=== PATIENT | female | born 1940 | race Caucasian/White ===

== ENCOUNTER 2017-09-29 10:15 | Inpatient (IN) | payer MEDICARE, MEDICAID ==
--- NOTE | 2017-09-29 11:35 | ER Document Report ---
ED Medical Screen (RME) - General Chief Complaint: Shortness Of Breath Stated Complaint: BREATHING PROBLEMS Time Seen by Provider: 09/29/17 11:22 Mode of Arrival: Ambulatory Information source: Patient Notes: 77-year-old female presents with complaints of shortness of breath has been worsening over the past few weeks to months ago I have greeted and performed a rapid initial assessment of this patient. A comprehensive ED assessment and evaluation of the patient, analysis of test results and completion of the medical decision making process will be conducted by additional ED providers. PHYSICAL EXAMINATION: GENERAL: Well-appearing, well-nourished and in no acute distress. HEAD: Atraumatic, normocephalic. EYES: Pupils equal round extraocular movements intact, conjunctiva are normal. ENT: Nares patent NECK: Normal range of motion LUNGS: No respiratory distress Musculoskeletal: Normal range of motion NEUROLOGICAL: Normal speech, normal gait. PSYCH: Normal mood, normal affect. SKIN: Warm, Dry, normal turgor, no rashes or lesions noted. TRAVEL OUTSIDE OF THE [place] IN LAST 30 DAYS: No - Related Data Allergies/Adverse Reactions: aspirin [Aspirin] Allergy (Mild, Verified 06/15/11 09:26) swelling below eyes Past Medical History - Social History Chew tobacco use (# tins/day): No Drug Abuse: None - Past Medical History Cardiac Medical History: Reports: Hx Hypertension - LISINOPRIL,HCTZ Denies: Hx Heart Attack Pulmonary Medical History: Denies: Hx Asthma Neurological Medical History: Denies: Hx Cerebrovascular Accident, Hx Seizures Renal/ Medical History: Denies: Hx Peritoneal Dialysis GI Medical History: Denies: Hx Hepatitis, Hx Hiatal Hernia, Hx Ulcer Infectious Medical History: Denies: Hx Hepatitis Past Surgical History: Denies: Hx Hysterectomy, Hx Mastectomy, Hx Open Heart Surgery, Hx Pacemaker Physical Exam - Vital signs Vitals: Temp Pulse BP Pulse Ox 98.0 F 104 H 152/99 H 90 L 09/29/17 11:15 09/29/17 11:15 09/29/17 11:15 09/29/17 11:15 Course - Vital Signs Vital signs: Temp Pulse Resp BP Pulse Ox 98.0 F 104 H 22 H 152/99 H 95 09/29/17 11:15 09/29/17 11:15 09/29/17 11:25 09/29/17 11:15 09/29/17 11:25 Doctor's Discharge - Discharge Referrals: TORY MARR PA [Primary Care Provider] - Follow up as needed
[2017-09-29 12:30] LABS: ABSOLUTE EOSINOPHILS # (AUTO) 0.2 10^3/uL (0.0-0.6); ABSOLUTE LYMPHOCYTES (AUTO) 1.8 10^3/uL (0.5-4.7); ABSOLUTE MONOCYTES (AUTO) 0.5 10^3/uL (0.1-1.4); ABSOLUTE NEUT (AUTO) 3.4 10^3/uL (1.7-8.2); BASOPHILS % (AUTO) 0.8 % (0-2); EOSINOPHILS % (AUTO) 3.1 % (0-6); LYMPHOCYTES % (AUTO) 30.3 % (13-45); MEAN CORPUSCULAR HEMOGLOBIN 26.1 pg (27.0-33.4); MEAN CORPUSCULAR HGB CONC 32.6 g/dL (32.0-36.0); MEAN CORPUSCULAR VOLUME 80 fl (80-97); MONOCYTES % (AUTO) 7.8 % (3-13); PLATELET COUNT 213 10^3/uL (150-450); RED BLOOD COUNT 4.98 10^6/uL (3.72-5.28); RED CELL DISTRIBUTION WIDTH 15.7 % (11.5-14.0); TOTAL CELLS COUNTED % (AUTO) 100 %; WHITE BLOOD COUNT 5.8 10^3/uL (4.0-10.5)
--- NOTE | 2017-09-29 12:42 | RADIOLOGY REPORT (SQ) ---
EXAM DESCRIPTION: CT CHEST WITHOUT COMPLETED DATE/TIME: 09/29/2017 12:26 pm REASON FOR STUDY: sob COMPARISON: None. TECHNIQUE: CT scan performed of the chest without intravenous contrast. Images reviewed with lung, soft tissue and bone windows. Reconstructed coronal and sagittal MPR images reviewed. All images st ored on PACS. All CT scanners at this facility use dose modulation, iterative reconstruction, and/or weight based d osing when appropriate to reduce radiation dose to as low as reasonably achievable (ALARA). [facility]: Dose Right [facility]: CareDose [facility]: Dose Right [facility]: Teradose 4D [facility]: [facility] RADIATION DOSE: CT Rad equipment meets quality standard of care and radiation dose reduction techniq ues were employed. CTDIvol: 6.7 mGy. DLP: 250 mGy-cm. mGy. LIMITATIONS: No technical limitations. FINDINGS: LUNGS AND PLEURA: Minimal bandlike scarring or atelectasis in the anterior aspect of the r ight middle lobe and lingula. Lungs are otherwise well inflated and clear. No pleural effusion. No pneumothorax. HILAR AND MEDIASTINAL STRUCTURES: There is a large retrocardiac hiatal hernia containing the GE junct ion, stomach fundus, stomach body. No identified masses or abnormal nodes. No obvious aneurysm. HEART AND VASCULAR STRUCTURES: No aneurysm. No pericardial effusion. Spotty coronary artery calcifi cation. UPPER ABDOMEN: No significant findings. Limited exam. THYROID AND OTHER SOFT TISSUES: No masses. No adenopathy. BONES: No significant finding. HARDWARE: None in the chest. OTHER: No other significant findings. IMPRESSION: No acute findings. Large retrocardiac hiatal hernia. TECHNICAL DOCUMENTATION: JOB ID: [id number] Quality ID # [id number]: Final reports with documentation of one or more dose reduction techniques (e.g., Au tomated exposure control, adjustment of the mA and/or kV according to patient size, use of iterative reconstruction technique) 2010 [employer]- All Rights Reserved Reading location - IP/workstation name: [email or web address]
[2017-09-29 12:54] LABS: ALANINE AMINOTRANSFERASE 32 U/L (9-52); ALBUMIN 4.9 g/dL (3.5-5.0); ALKALINE PHOSPHATASE 79 U/L (38-126); ANION GAP 12 (5-19); ASPARTATE AMINO TRANSFERASE 22 U/L (14-36); BILIRUBIN,DIRECT 0.3 mg/dL (0.0-0.4); BILIRUBIN,TOTAL 0.3 mg/dL (0.2-1.3); BLOOD UREA NITROGEN 16 mg/dL (7-20); CALCIUM 10.4 mg/dL (8.4-10.2); CARBON DIOXIDE 25 mmol/L (22-30); CHLORIDE 108 mmol/L (98-107); CREATINE KINASE 55 U/L (30-135); GLUCOSE 80 mg/dL (75-110); POTASSIUM 4.7 mmol/L (3.6-5.0); SODIUM 144.6 mmol/L (137-145); TOTAL PROTEIN 8.2 g/dL (6.3-8.2)
[2017-09-29 13:06] LABS: CREATINE KINASE MB 0.65 ng/mL (<4.55); NT PRO BNP 152 pg/mL (<450); TROPONIN I < 0.012 ng/mL
--- NOTE | 2017-09-29 13:23 | ER Document Report ---
ED General - General Chief Complaint: Shortness Of Breath Stated Complaint: BREATHING PROBLEMS Time Seen by Provider: 09/29/17 11:22 Mode of Arrival: Ambulatory Notes: This is a 77-year-old female to the emergency department chief complaint shortness of breath. Patient states that she started having shortness of breath around June. Has persistently gotten worse. Worse with ambulation. Occasional pain in the left side of the chest. Denies any previous history of DVT or blood clots. Denies any fever, chills, sweats. Laying down does not make it worse. Exertion makes it worse. No prior history of CHF. No heart problems. Has some depression but otherwise has fairly unremarkable past medical history. TRAVEL OUTSIDE OF THE [place] IN LAST 30 DAYS: No - HPI Onset/Duration: Gradual, Intermittent Severity: Mild Pain Level: 1 Associated symptoms: Shortness of breath - Related Data Allergies/Adverse Reactions: aspirin [Aspirin] Allergy (Mild, Verified 09/29/17 12:42) swelling below eyes Past Medical History - General Information source: Patient - Social History Smoking Status: Never Smoker Chew tobacco use (# tins/day): No Drug Abuse: None Lives with: Alone Family History: Reviewed & Not Pertinent Patient has suicidal ideation: No Patient has homicidal ideation: No - Past Medical History Cardiac Medical History: Reports: Hx Hypertension - LISINOPRIL,HCTZ Denies: Hx Heart Attack Pulmonary Medical History: Denies: Hx Asthma Neurological Medical History: Denies: Hx Cerebrovascular Accident, Hx Seizures Renal/ Medical History: Denies: Hx Peritoneal Dialysis GI Medical History: Denies: Hx Hepatitis, Hx Hiatal Hernia, Hx Ulcer Infectious Medical History: Denies: Hx Hepatitis Past Surgical History: Denies: Hx Hysterectomy, Hx Mastectomy, Hx Open Heart Surgery, Hx Pacemaker Review of Systems - Review of Systems Constitutional: denies: Fever, Malaise, Weakness EENT: denies: Double vision, Difficulty swallowing, Throat swelling, Mouth pain Cardiovascular: Chest pain, Dyspnea. denies: Palpitations, Heart racing, Orthopnea, Syncope, Dizziness, Edema, Paroxysmal Nocturnal Dysp Respiratory: Short of breath. denies: Cough, Hurts to breathe, Wheezing Gastrointestinal: denies: Abdominal pain, Diarrhea, Nausea, Vomiting Genitourinary: denies: Burning, Dysuria, Discharge Musculoskeletal: denies: Back pain, Joint pain, Muscle pain Skin: denies: Dryness, Lesions, Lumps, Rash Hematologic/Lymphatic: denies: Anemia, Blood clots, Easy bleeding, Easy bruising Neurological/Psychological: Depression. denies: Confusion, Weakness, Numbness Physical Exam - Vital signs Vitals: Temp Pulse BP Pulse Ox 98.0 F 104 H 152/99 H 90 L 09/29/17 11:15 09/29/17 11:15 09/29/17 11:15 09/29/17 11:15 Interpretation: Tachycardic - General General appearance: Appears well, Alert - HEENT Head: Normocephalic, Atraumatic Eyes: Normal Pupils: PERRL - Respiratory Respiratory status: No respiratory distress Chest status: Nontender Breath sounds: Normal Chest palpation: Normal - Cardiovascular Rhythm: Tachycardia Heart sounds: Normal auscultation Murmur: No - Abdominal Inspection: Normal Distension: No distension Bowel sounds: Normal Tenderness: Nontender Organomegaly: No organomegaly - Back Back: Normal, Nontender - Extremities General upper extremity: Normal inspection, Nontender, Normal color, Normal ROM , Normal temperature General lower extremity: Normal inspection, Nontender, Normal color, Normal ROM , Normal temperature, Normal weight bearing. No: Jessy's sign - Neurological Neuro grossly intact: Yes Cognition: Normal Orientation: AAOx4 Kassandra Coma Scale Eye Opening: Spontaneous Kassandra Coma Scale Verbal: Oriented Kassandra Coma Scale Motor: Obeys Commands [place] Coma Scale Total: 15 Speech: Normal Motor strength normal: LUE, RUE, LLE, RLE Sensory: Normal - Psychological Associated symptoms: Normal affect, Normal mood - Skin Skin Temperature: Warm Skin Moisture: Dry Skin Color: Normal Course - Re-evaluation Re-evalutation: 09/29/17 15:34 Patient has bilateral pulmonary embolisms. Starting anticoagulant therapy at this time. Admitted to the hospital for further treatment. Of note patient ablated to the bathroom and became significantly short of breath with oxygen saturations dropping into the 80s - Vital Signs Vital signs: Temp Pulse Resp BP Pulse Ox 98.0 F 104 H 14 150/86 H 98 09/29/17 11:15 09/29/17 11:15 09/29/17 15:07 09/29/17 14:01 09/29/17 15:07 - Laboratory Result Diagrams: 09/29/17 12:00 09/29/17 12:00 Laboratory results interpreted by me: 09/29/17 09/29/17 12:00 12:00 MCH 26.1 L RDW 15.7 H Chloride 108 H Est GFR (Non-Af Amer) 53 L Calcium 10.4 H - EKG Interpretation by Me EKG shows normal: [place], Intervals, QRS Complexes, ST-T Waves Rate: Tachycardia Critical Care Note - Critical Care Note Total time excluding time spent on procedures (mins): 35 Comments: Respiratory distress with ambulation, pulmonary embolisms bilaterally Discharge - Discharge Clinical Impression: Pulmonary embolism, bilateral Condition: Good Disposition: ADMITTED INPATIENT Admitting Provider: Hospitalist - Dr. Gómez Unit Admitted: IMCU Referrals: TORY MARR PA [Primary Care Provider] - Follow up as needed
--- NOTE | 2017-09-29 15:02 | RADIOLOGY REPORT (SQ) ---
EXAM DESCRIPTION: CTA CHEST COMPLETED DATE/TIME: 09/29/2017 2:37 pm REASON FOR STUDY: el parker COMPARISON: 09/29/2017 TECHNIQUE: CT scan of the chest performed using helical scanning technique with dynamic intravenous contrast injection. Images reviewed with lung, soft tissue and bone windows. Reconstructed coronal and sagittal MPR images reviewed. Additional 3 dimensional post-processing performed to develop Maximal Intensity Projection images (AZ P). All images stored on PACS. All CT scanners at this facility use dose modulation, iterative reconstruction, and/or weight based d osing when appropriate to reduce radiation dose to as low as reasonably achievable (ALARA). [facility]: Dose Right [facility]: CareDose [facility]: Dose Right [facility]: Teradose 4D [facility]: [employer] CONTRAST TYPE AND DOSE: contrast/concentration: Isovue 370.00 mg/ml; Total Contrast Delivered: 65.0 ml; Total Saline Delivered: 90.0 ml Contrast bolus optimized for the pulmonary arteries. Not diagnostic for the aorta. RENAL FUNCTION: BUN 16 creatinine 1 RADIATION DOSE: CT Rad equipment meets quality standard of care and radiation dose reduction techniq ues were employed. CTDIvol: 14.3 - 16.5 mGy. DLP: 573 mGy-cm. . LIMITATIONS: None. FINDINGS: LUNGS AND PLEURA: No masses, infiltrates, pneumothorax. No pleural effusions, calcificati ons. AORTA AND GREAT VESSELS: No aneurysm. Contrast bolus not optimized for the aorta. HEART: No pericardial effusion. Moderate to marked coronary artery calcifications. PULMONARY ARTERIES: There is thrombus in the right and left pulmonary arteries and in the lower lobe branches. There is more thrombus in the right lower lobe pulmonary artery than the left. The overal l clot burden appears relatively small. HILAR AND MEDIASTINAL STRUCTURES: Prominent hiatal hernia. HARDWARE: None in the chest. UPPER ABDOMEN: No significant findings. Limited exam. THYROID AND OTHER SOFT TISSUES: No masses. No adenopathy. BONES: There is an old fracture of the upper sternum with callus. 3D MIPS: Confirm above findings. OTHER: No other significant finding. IMPRESSION: 1. Bilateral pulmonary emboli as described. 2. Prominent hiatal hernia. 3. There is no old sternal fracture. COMMENT: Quality ID # 436: Final reports with documentation of one or more dose reduction techniques (e.g., Automated exposure control, adjustment of the mA and/or kV according to patient size, use of iterative reconstruction technique) TECHNICAL DOCUMENTATION: JOB ID: [id number] [employer]- All Rights Reserved Reading location - IP/workstation name: [email or web address]
[2017-09-29] MEDS ORDERED: MAGNESIUM HYDROXIDE SUSP 30 ML UDCUP PO PRN (15:27)
[2017-09-29] MEDS ORDERED: ACETAMINOPHEN 325 MG TABLET PO PRN (15:27)
[2017-09-29] MEDS ORDERED: IPRATROPIUM/ALBUTEROL 0.5-2.5 MG/3 ML AMPUL NEB PRN (15:27)
[2017-09-29] MEDS ORDERED: ONDANSETRON HCL INJ/PF 4 MG/2 ML SDV IV PRN (15:27)
[2017-09-29] MEDS ORDERED: NORMAL SALINE 1000 ML 1,000 ML IV ONE (15:30)
[2017-09-29] MEDS ORDERED: ENOXAPARIN SODIUM INJ 80 MG/0.8 ML DISP.SYRIN SUBCUT ONE (16:00)
[2017-09-29 16:13] LABS: APPEARANCE,URINE CLEAR; BILIRUBIN,URINE NEGATIVE (NEGATIVE); COLOR,URINE YELLOW; GLUCOSE, URINE NEGATIVE (NEGATIVE); KETONES,URINE NEGATIVE (NEGATIVE); LEUKOCYTE ESTERASE,URINE TRACE (NEGATIVE); NITRITE,URINE NEGATIVE (NEGATIVE); PROTEIN,URINE NEGATIVE (NEGATIVE); URINE SPECIFIC GRAVITY 1.036; UROBILINOGEN,URINE NEGATIVE mg/dL (<2.0)
[2017-09-29 17:51] LABS: CREATINE KINASE MB 0.67 ng/mL (<4.55)
[2017-09-29 17:55] LABS: TROPONIN I < 0.012 ng/mL
[2017-09-29] MEDS: DOCUSATE SODIUM 100 MG CAPSULE PO SCH (18:07)
--- NOTE | 2017-09-29 18:33 | PDOC H&P ---
History of Present Illness Admission Date/PCP: 09/29/17 15:41 RIVERA SIMS Patient complains of: Shortness of breath History of Present Illness: FREEMAN MAZARIEGOS is a 77 year old female with a past medical history of osteoarthritis, hypertension and GERD. Presents with approximately 8 weeks of exertional shortness of breath significantly worse over the last week prompting to seek evaluation in the emergency room. She is found to have bilateral pulmonary emboli but otherwise hemodynamically stable. She started on full dose Lovenox and referred to the hospitalist for admission. Patient denies chest pain palpitations nausea vomiting or diaphoresis she denies leg swelling or pain she admits to a trauma of falling onto her chest approximately 8 months ago without residual effect. She denies any medications, hormone replacement tobacco or NSAIDs. Past Medical History Cardiac Medical History: Reports: Hypertension - LISINOPRIL,HCTZ Denies: Myocardial Infarction Pulmonary Medical History: Denies: Asthma Neurological Medical History: Denies: Seizures GI Medical History: Reports: Gastroesophageal Reflux Disease Denies: Hepatitis, Hiatal Hernia Musculoskeltal Medical History: Reports: Arthritis Psychiatric Medical History: Reports: Depression Hematology: Denies: Anemia, Sickle Cell Disease Past Surgical History Past Surgical History: Denies: Amputation, Hysterectomy, Mastectomy, Pacemaker Social History Information Source: Patient Lives with: Alone Smoking Status: Never Smoker Frequency of Alcohol Use: None Hx Recreational Drug Use: No - Advance Directive Resuscitation Status: Full Code Family History Family History: Hypertension Parental Family History Reviewed: Yes Children Family History Reviewed: Yes Sibling(s) Family History Reviewed.: Yes Medication/Allergy Home Medications: Alendronate Sodium [Fosamax 70 mg Tablet] 70 mg PO SA@1000 09/29/17 Amitriptyline HCl [Elavil 25 mg Tablet] 25 mg PO QHS 09/29/17 Atorvastatin Calcium [Lipitor 20 mg Tablet] 20 mg PO QHS 09/29/17 Bupropion HCl [Bupropion HCl Sr] 150 mg PO Q12 09/29/17 Diclofenac Sodium [Voltaren] 75 mg PO DAILY 09/29/17 Fluoxetine HCl [Prozac 20 mg Capsule] 20 mg PO Q12 09/29/17 Hydrochlorothiazide [Hydrodiuril 12.5 mg Capsule] 12.5 mg PO QAM 09/29/17 Lisinopril [Prinivil 10 mg Tablet] 20 mg PO DAILY 09/29/17 Olanzapine [Zyprexa 5 mg Tablet] 5 mg PO QHS 09/29/17 Omeprazole 20 mg PO DAILY 09/29/17 Prednisolone Acetate [Inflamase 1% Oph Susp 5 ml] 1 drop OS QHS 09/29/17 Sodium Chloride [Jani-128 Oph Soln 5% 15 ml] 1 drop OD QHS 09/29/17 Allergies/Adverse Reactions: aspirin [Aspirin] Allergy (Mild, Verified 09/29/17 12:42) swelling below eyes Review of Systems Constitutional: ABSENT: chills, fever(s), headache(s), weight gain, weight loss Eyes: ABSENT: visual disturbances Ears: ABSENT: hearing changes Cardiovascular: ABSENT: chest pain, dyspnea on exertion, edema, orthropnea, palpitations Respiratory: ABSENT: cough, hemoptysis Gastrointestinal: ABSENT: abdominal pain, constipation, diarrhea, hematemesis, hematochezia, nausea, vomiting Genitourinary: ABSENT: dysuria, hematuria Musculoskeletal: ABSENT: joint swelling Integumentary: ABSENT: rash, wounds Neurological: ABSENT: abnormal gait, abnormal speech, confusion, dizziness, focal weakness, syncope Psychiatric: ABSENT: anxiety, depression, homidical ideation, suicidal ideation Endocrine: ABSENT: cold intolerance, heat intolerance, polydipsia, polyuria Hematologic/Lymphatic: ABSENT: easy bleeding, easy bruising Physical Exam Vital Signs: Temp Pulse Resp BP Pulse Ox 97.9 F 93 18 163/84 H 95 09/29/17 18:13 09/29/17 18:13 09/29/17 18:13 09/29/17 18:13 09/29/17 18:13 Intake & Output 09/28/17 09/29/17 09/30/17 11:59 11:59 11:59 Weight 68.2 kg General appearance: PRESENT: no acute distress, well-developed, well-nourished Head exam: PRESENT: atraumatic, normocephalic Eye exam: PRESENT: conjunctiva pink, EOMI, PERRLA. ABSENT: scleral icterus Ear exam: PRESENT: normal external ear exam Mouth exam: PRESENT: moist, tongue midline Neck exam: ABSENT: carotid bruit, JVD, lymphadenopathy, thyromegaly Respiratory exam: PRESENT: clear to auscultation fide. ABSENT: rales, rhonchi, wheezes Cardiovascular exam: PRESENT: RRR. ABSENT: diastolic murmur, rubs, systolic murmur Pulses: PRESENT: normal dorsalis pedis pul Vascular exam: PRESENT: normal capillary refill GI/Abdominal exam: PRESENT: normal bowel sounds, soft. ABSENT: distended, guarding, mass, organolmegaly, rebound, tenderness Rectal exam: PRESENT: deferred Extremities exam: PRESENT: full ROM. ABSENT: calf tenderness, clubbing, pedal edema Neurological exam: PRESENT: alert, awake, oriented to person, oriented to place , oriented to time, oriented to situation, CN II-XII grossly intact. ABSENT: motor sensory deficit Psychiatric exam: PRESENT: appropriate affect, normal mood. ABSENT: homicidal ideation, suicidal ideation Skin exam: PRESENT: dry, intact, warm. ABSENT: cyanosis, rash Results Laboratory Results: 09/29/17 09/29/17 17:09 17:09 Creatine Kinase 41 CK-MB (CK-2) 0.67 Troponin I < 0.012 Impressions: Chest CT 09/29/17 11:35 IMPRESSION: No acute findings. Large retrocardiac hiatal hernia. Chest/Abdomen CTA 09/29/17 13:22 IMPRESSION: 1. Bilateral pulmonary emboli as described. 2. Prominent hiatal hernia. 3. There is no old sternal fracture. Assessment & Plan - Diagnosis (1) Pulmonary embolism, bilateral Is this a current diagnosis for this admission?: Yes Plan: No obvious underlying cause or excessive risk, hemodynamically stable continue full dose Lovenox follow-up CBC (2) Shortness of breath on exertion Is this a current diagnosis for this admission?: Yes Plan: Secondary to #1 oxygen saturations of 90% at room air at rest. Symptomatic management. - Time Time Spent: 30 to 50 Minutes
[2017-09-29] MEDS: ENOXAPARIN SODIUM INJ 80 MG/0.8 ML DISP.SYRIN SUBCUT SCH (21:18)
--- NOTE | 2017-09-29 22:02 | EKG REPORT ---
SEVERITY:- OTHERWISE NORMAL ECG - SINUS TACHYCARDIA BORDERLINE LEFT AXIS DEVIATION : Confirmed by: Debbi Tuttle 29-Sep-2017 22:00:55
[2017-09-29 22:20] LABS: CREATINE KINASE MB 0.72 ng/mL (<4.55)
[2017-09-29 22:25] LABS: TROPONIN I < 0.012 ng/mL
[2017-09-30 04:46] LABS: HEMATOCRIT 36.7 % (36.0-47.0); HEMOGLOBIN 11.8 g/dL (12.0-15.5); MEAN CORPUSCULAR HEMOGLOBIN 25.7 pg (27.0-33.4); MEAN CORPUSCULAR HGB CONC 32.1 g/dL (32.0-36.0); MEAN CORPUSCULAR VOLUME 80 fl (80-97); PLATELET COUNT 184 10^3/uL (150-450); RED BLOOD COUNT 4.58 10^6/uL (3.72-5.28); RED CELL DISTRIBUTION WIDTH 15.9 % (11.5-14.0); WHITE BLOOD COUNT 5.7 10^3/uL (4.0-10.5)
[2017-09-30 05:06] LABS: ANION GAP 11 (5-19); BLOOD UREA NITROGEN 17 mg/dL (7-20); CALCIUM 9.7 mg/dL (8.4-10.2); CARBON DIOXIDE 23 mmol/L (22-30); CHLORIDE 108 mmol/L (98-107); GLUCOSE 89 mg/dL (75-110); POTASSIUM 4.2 mmol/L (3.6-5.0); SODIUM 141.7 mmol/L (137-145)
[2017-09-30 05:15] LABS: CREATINE KINASE MB 0.47 ng/mL (<4.55)
[2017-09-30 05:22] LABS: TROPONIN I < 0.012 ng/mL
[2017-09-30] MEDS ORDERED: (PENDING PHARMACY ID) (Diclofenac Sodium [Voltaren] 75 MG) PO SCH (10:00)
[2017-09-30] MEDS: ENOXAPARIN SODIUM INJ 80 MG/0.8 ML DISP.SYRIN SUBCUT SCH (10:41)
[2017-09-30] MEDS: DOCUSATE SODIUM 100 MG CAPSULE PO SCH (10:42)
[2017-09-30] MEDS ORDERED: LANSOPRAZOLE 15 MG TAB.RAP.DR PO ONE (11:00)
[2017-09-30] MEDS ORDERED: LISINOPRIL 10 MG TABLET PO ONE (11:00)
[2017-09-30] MEDS ORDERED: DICLOFENAC SODIUM 25 MG TABLET.DR PO ONE (11:00)
[2017-09-30] MEDS ORDERED: FLUOXETINE HCL 20 MG CAPSULE PO ONE (11:00)
--- NOTE | 2017-09-30 11:18 | PDOC DISCHARGE SUMMARY ---
General - Admit/Disc Date/PCP Admission Date/Primary Care Provider: 09/29/17 15:41 RIVERA SIMS Discharge Date: 09/30/17 - Discharge Diagnosis (1) Pulmonary embolism, bilateral Is this a current diagnosis for this admission?: Yes (2) Hypertension Is this a current diagnosis for this admission?: Yes (3) Osteoarthritis Is this a current diagnosis for this admission?: Yes (4) GERD without esophagitis Is this a current diagnosis for this admission?: Yes (5) Depression Is this a current diagnosis for this admission?: Yes - Additional Information Resuscitation Status: Full Code Prescriptions: Apixaban [Eliquis 5 mg Tablet] 5 mg PO BID 30 Days #74 tablet Home Medications: Alendronate Sodium [Fosamax 70 mg Tablet] 70 mg PO SA@1000 09/29/17 Amitriptyline HCl [Elavil 25 mg Tablet] 25 mg PO QHS 09/29/17 Atorvastatin Calcium [Lipitor 20 mg Tablet] 20 mg PO QHS 09/29/17 Bupropion HCl [Bupropion HCl Sr] 150 mg PO Q12 09/29/17 Diclofenac Sodium [Voltaren] 75 mg PO DAILY 09/29/17 Fluoxetine HCl [Prozac 20 mg Capsule] 20 mg PO Q12 09/29/17 Hydrochlorothiazide [Hydrodiuril 12.5 mg Capsule] 12.5 mg PO QAM 09/29/17 Lisinopril [Prinivil 10 mg Tablet] 20 mg PO DAILY 09/29/17 Olanzapine [Zyprexa 5 mg Tablet] 5 mg PO QHS 09/29/17 Omeprazole 20 mg PO DAILY 09/29/17 Prednisolone Acetate [Inflamase 1% Oph Susp 5 ml] 1 drop OS QHS 09/29/17 Sodium Chloride [Jani-128 Oph Soln 5% 15 ml] 1 drop OD QHS 09/29/17 Apixaban [Eliquis 5 mg Tablet] 5 mg PO BID 30 Days #74 tablet 09/30/17 Docusate Sodium [Colace 100 mg Capsule] 100 mg PO BID capsule 09/30/17 History of Present Illness History of Present Illness: FREEMAN MAZARIEGOS is a 77 year old female with a history of hypertension who presented to the hospital with approximately 8 weeks of shortness of breath worse with exertion. She did not report fever, chills, or coughing. Furthermore, she is a non-smoker. Hospital Course Hospital Course: In the emergency department, she underwent a CT scan with pulmonary angiogram. She was ultimately diagnosed with bilateral pulmonary emboli, with a small clot burden. She was started on Lovenox 1 mg/kg twice daily. She remained hemodynamically stable. She did not require oxygen. Within 24 hours, she was asymptomatic. Her hospital stay was uneventful. She agreed to treatment with Eliquis. Risk and benefits were discussed regarding treatment, including lack of a reversal agent. She will follow-up with her PCP in 2 weeks. She been advised that she will need to his day on Eliquis for about 6 months. Physical Exam Vital Signs: Temp Pulse Resp BP Pulse Ox 98.3 F 106 H 18 150/83 H 94 09/30/17 07:32 09/30/17 09:46 09/30/17 09:46 09/30/17 07:32 09/30/17 09:46 Intake & Output 09/29/17 09/30/17 10/01/17 06:59 06:59 06:59 Intake Total 610 Balance 610 Weight 69.2 kg General appearance: PRESENT: no acute distress, well-nourished Head exam: PRESENT: atraumatic, normocephalic Eye exam: PRESENT: EOMI, PERRLA Neck exam: ABSENT: carotid bruit, JVD, lymphadenopathy, thyromegaly Respiratory exam: PRESENT: clear to auscultation fide. ABSENT: rales, rhonchi, wheezes Cardiovascular exam: PRESENT: RRR. ABSENT: diastolic murmur, rubs, systolic murmur Musculoskeletal exam: PRESENT: ambulatory Neurological exam: PRESENT: alert, awake, oriented to person, oriented to place , oriented to time, oriented to situation, CN II-XII grossly intact. ABSENT: motor sensory deficit Psychiatric exam: PRESENT: appropriate affect, normal mood. ABSENT: homicidal ideation, suicidal ideation Skin exam: PRESENT: dry, intact, warm. ABSENT: cyanosis, rash Results Laboratory Results: 09/30/17 03:44 09/30/17 03:44 09/30/17 09/30/17 03:44 03:44 WBC 5.7 RBC 4.58 Hgb 11.8 L Hct 36.7 MCV 80 MCH 25.7 L MCHC 32.1 RDW 15.9 H Plt Count 184 Sodium 141.7 Potassium 4.2 Chloride 108 H Carbon Dioxide 23 Anion Gap 11 BUN 17 Creatinine 1.17 Est GFR ( Amer) 54 L Est GFR (Non-Af Amer) 45 L Glucose 89 Calcium 9.7 09/29/17 09/29/17 09/29/17 17:09 17:09 21:38 Creatine Kinase 41 52 CK-MB (CK-2) 0.67 Troponin I < 0.012 09/29/17 09/30/17 09/30/17 21:38 03:44 03:44 Creatine Kinase 49 CK-MB (CK-2) 0.72 0.47 Troponin I < 0.012 < 0.012 Impressions: Chest CT 09/29/17 11:35 IMPRESSION: No acute findings. Large retrocardiac hiatal hernia. Chest/Abdomen CTA 09/29/17 13:22 IMPRESSION: 1. Bilateral pulmonary emboli as described. 2. Prominent hiatal hernia. 3. There is no old sternal fracture. Qualifiers - * PATEINT BEING DISCHARGED WITH ANY OF THE FOLLOWING DIAGNOSIS?: VTE (PE or DVT) VTE patient discharged on overlapping Therapy?: No Reason(s) for not prescribing Overlap Therapy:: Not indicated Plan Time Spent: Greater than 30 Minutes - 36 minutes
[2017-09-30 12:05] VITALS: BP 129/84
[2017-09-30] MEDS ORDERED: APIXABAN 5 MG TABLET PO ONE (14:00)
[2017-09-30] MEDS ORDERED: BUPROPION HCL 100 MG TABLET PO SCH (14:00)
[2017-09-30] MEDS ORDERED: ATORVASTATIN CALCIUM 20 MG TABLET PO SCH (22:00)
[2017-09-30] MEDS ORDERED: AMITRIPTYLINE HCL 25 MG TABLET PO SCH (22:00)
[2017-09-30] MEDS ORDERED: OLANZAPINE 5 MG TABLET PO SCH (22:00)
[2017-09-30] MEDS ORDERED: PREDNISOLONE ACETATE 1% OPH SUSP 5 ML OS SCH (22:00)
[2017-09-30] MEDS ORDERED: SODIUM CHLORIDE 5% OPH SOLN 15 ML OD SCH (22:00)
[2017-10-01] MEDS ORDERED: LANSOPRAZOLE 15 MG TAB.RAP.DR PO SCH ×2 (06:00)
[2017-10-01] MEDS ORDERED: HYDROCHLOROTHIAZIDE 12.5 MG CAPSULE PO SCH (08:00)
[2017-10-01] MEDS ORDERED: LISINOPRIL 10 MG TABLET PO SCH (10:00)
[2017-10-01] MEDS ORDERED: FLUOXETINE HCL 20 MG CAPSULE PO SCH (10:00)
[2017-10-01] MEDS ORDERED: DICLOFENAC SODIUM 25 MG TABLET.DR PO SCH (10:00)
[2017-10-01] MEDS ORDERED: (PENDING PHARMACY ID) (Alendronate Sodium [Fosamax 70 Mg Tablet] 70 MG) PO SCH (10:00)
== END 2017-09-30 13:26 | disposition home or self-care (01) | DRG 176 ==
LOC: ER 10:15 → EH 15:41 → 3S 17:25
PROVIDERS: ADMIT Emergency Medicine; ATTEND Emergency Medicine
DX: I26.99 Other pulmonary embolism without acute cor pulmonale (principal); F32.9 Major depressive disorder, single episode, unspecified; I10 Essential (primary) hypertension; M19.90 Unspecified osteoarthritis, unspecified site; K21.9 Gastro-esophageal reflux disease without esophagitis; Z79.02 Long term (current) use of antithrombotics/antiplatelets; Z88.6 Allergy status to analgesic agent; Z79.899 Other long term (current) drug therapy
CPT/HCPCS: 36415; 71250; 71275; 80048; 80053; 81001; 82550; 82553; 83880; 84484; 85025; 85027; 87040; 93005; 93010; 99291; J1650; J3490; J7030

== ENCOUNTER 2018-09-14 13:19 | Emergency (ER) | payer MEDICARE, MEDICAID ==
--- NOTE | 2018-09-14 13:58 | ER Document Report ---
ED Medical Screen (RME) - General Chief Complaint: Breathing Difficulty Stated Complaint: DIFFICULTY BREATHING Time Seen by Provider: 09/14/18 13:51 Primary Care Provider: TORY MARR PA [Primary Care Provider] - Follow up as needed Mode of Arrival: Ambulatory Information source: Patient Notes: This is a 78-year-old female who presents to the emergency room with gradually worsening dyspnea on exertion for the past week. Patient does have a history of a PE and was on anticoagulation (Eliquis) for 6 months. Patient was taken off the Eliquis as planned last March. Patient states her symptoms do feel similar to when she had the pulmonary embolism. She denies any chest pain. She denies any fever or cough. TRAVEL OUTSIDE OF THE [place] IN LAST 30 DAYS: No - Related Data Allergies/Adverse Reactions: aspirin [Aspirin] Allergy (Mild, Verified 09/14/18 13:21) swelling below eyes Past Medical History - Social History Chew tobacco use (# tins/day): No Frequency of alcohol use: None Drug Abuse: None - Past Medical History Cardiac Medical History: Reports: Hx Hypertension - LISINOPRIL,HCTZ Denies: Hx Heart Attack Pulmonary Medical History: Denies: Hx Asthma Neurological Medical History: Denies: Hx Cerebrovascular Accident, Hx Seizures Renal/ Medical History: Denies: Hx Peritoneal Dialysis GI Medical History: Reports: Hx Gastroesophageal Reflux Disease. Denies: Hx Hepatitis, Hx Hiatal Hernia, Hx Ulcer Musculoskeltal Medical History: Reports Hx Arthritis Psychiatric Medical History: Reports: Hx Depression Infectious Medical History: Denies: Hx Hepatitis Past Surgical History: Reports: Hx Orthopedic Surgery - fide hip replacement. Denies: Hx Hysterectomy, Hx Mastectomy, Hx Open Heart Surgery, Hx Pacemaker - Immunizations History of Influenza Vaccine for 04/2017 - 09/2017 Season: No Physical Exam - Vital signs Vitals: Temp Pulse Resp BP Pulse Ox 99.0 F 94 20 148/72 H 94 09/14/18 13:23 09/14/18 13:23 09/14/18 13:23 09/14/18 13:23 09/14/18 13:23 Course - Vital Signs Vital signs: Temp Pulse Resp BP Pulse Ox 99.0 F 94 20 148/72 H 94 09/14/18 13:23 09/14/18 13:23 09/14/18 13:23 09/14/18 13:23 09/14/18 13:23 Doctor's Discharge - Discharge Referrals: TORY MARR PA [Primary Care Provider] - Follow up as needed
[2018-09-14 15:10] LABS: ABSOLUTE BASOPHILS # (AUTO) 0.1 10^3/uL (0.0-0.2); ABSOLUTE EOSINOPHILS # (AUTO) 0.5 10^3/uL (0.0-0.6); ABSOLUTE NEUT (AUTO) 2.5 10^3/uL (1.7-8.2); RED BLOOD COUNT 4.15 10^6/uL (3.72-5.28); TOTAL CELLS COUNTED % (AUTO) 100 %
[2018-09-14 15:13] LABS: ABSOLUTE LYMPHOCYTES (AUTO) 2.2 10^3/uL (0.5-4.7); ABSOLUTE MONOCYTES (AUTO) 0.6 10^3/uL (0.1-1.4); BASOPHILS % (AUTO) 1.2 % (0-2); EOSINOPHILS % (AUTO) 8.9 % (0-6); HEMATOCRIT 36.8 % (36.0-47.0); HEMOGLOBIN 12.8 g/dL (12.0-15.5); LYMPHOCYTES % (AUTO) 38.1 % (13-45); MEAN CORPUSCULAR HEMOGLOBIN 30.7 pg (27.0-33.4); MEAN CORPUSCULAR HGB CONC 34.7 g/dL (32.0-36.0); MEAN CORPUSCULAR VOLUME 89 fl (80-97); MONOCYTES % (AUTO) 9.5 % (3-13); RED CELL DISTRIBUTION WIDTH 14.9 % (11.5-14.0); SEGMENTED NEUTROPHILS % (AUTO) 42.3 % (42-78); WHITE BLOOD COUNT 5.8 10^3/uL (4.0-10.5)
[2018-09-14 15:32] LABS: PLATELET COUNT 246 10^3/uL (150-450)
--- NOTE | 2018-09-14 15:42 | ER Document Report ---
ED Respiratory Problem - General Chief Complaint: Breathing Difficulty Stated Complaint: DIFFICULTY BREATHING Time Seen by Provider: 09/14/18 13:51 Primary Care Provider: TORY MARR PA [Primary Care Provider] - Follow up as needed Mode of Arrival: Ambulatory Notes: 78-year-old female to emergency department chief complaint of shortness of breath. Patient states that she has been increasing short of breath of the last several days. Patient is concerned because she has had pulmonary embolisms in the past. Was on blood thinners for a while but not anymore. No recent long trips or travel. Denies any chest pain. States that the dyspnea is worse with exertion. TRAVEL OUTSIDE OF THE [place] IN LAST 30 DAYS: No - HPI Patient complains to provider of: Short of breath. No: COPD, Cough, Hurts to breath Onset: Last week Duration: Intermittent episodes Quality of pain: No pain Severity: Mild Pain Level: Denies Short of Breath: Mild Sputum amount: None Associated symptoms: None - Related Data Allergies/Adverse Reactions: aspirin [Aspirin] Allergy (Mild, Verified 09/14/18 13:21) swelling below eyes Past Medical History - General Information source: Patient - Social History Smoking Status: Never Smoker Chew tobacco use (# tins/day): No Frequency of alcohol use: None Drug Abuse: None Lives with: Family Family History: Hypertension Patient has suicidal ideation: No Patient has homicidal ideation: No - Past Medical History Cardiac Medical History: Reports: Hx Hypertension - LISINOPRIL,HCTZ Denies: Hx Heart Attack Pulmonary Medical History: Denies: Hx Asthma Neurological Medical History: Denies: Hx Cerebrovascular Accident, Hx Seizures Renal/ Medical History: Denies: Hx Peritoneal Dialysis GI Medical History: Reports: Hx Gastroesophageal Reflux Disease. Denies: Hx Hepatitis, Hx Hiatal Hernia, Hx Ulcer Musculoskeletal Medical History: Reports Hx Arthritis Psychiatric Medical History: Reports: Hx Depression Infectious Medical History: Denies: Hx Hepatitis Past Surgical History: Reports: Hx Orthopedic Surgery - fide hip replacement. Denies: Hx Hysterectomy, Hx Mastectomy, Hx Open Heart Surgery, Hx Pacemaker - Immunizations Hx Pneumococcal Vaccination: 07/11/15 Review of Systems - Review of Systems Notes: Constitutional: denies: Chills, Diaphoresis, Fever, Malaise, Weakness EENT: denies: Eye discharge, Blurred vision, Tearing, Double vision, Nose congestion, Nose discharge, Throat swelling, Mouth pain Cardiovascular: denies: Palpitations, Heart racing, Orthopnea, Dyspnea, Chest pain Respiratory: denies: Cough, Hurts to breathe, Wheezing, +Shortness of breath Gastrointestinal: denies: Abdominal pain, Diarrhea, Nausea, Vomiting, Black stools, bright red blood in stool Genitourinary: denies: Burning, Dysuria, Discharge, Frequency, Flank pain, Hematuria Musculoskeletal: denies: Joint pain, Joint swelling, Muscle pain, Muscle stiffness, back pain Hematologic/Lymphatic: denies: Anemia, Easy bleeding, Easy bruising, Blood clots Neurological/Psychological: denies: Confusion, Dementia, Depression, Loss of consciousness Skin: No lesions, no masses, no skin breakdown, no abscesses Physical Exam - Vital signs Vitals: Temp Pulse Resp BP Pulse Ox 99.0 F 94 20 148/72 H 94 09/14/18 13:23 09/14/18 13:23 09/14/18 13:23 09/14/18 13:23 09/14/18 13:23 Interpretation: Normal - General General appearance: Appears well, Alert - HEENT Head: Normocephalic, Atraumatic Eyes: Normal Pupils: PERRL - Respiratory Respiratory status: No respiratory distress Chest status: Nontender Breath sounds: Normal Chest palpation: Normal - Cardiovascular Rhythm: Regular Heart sounds: Normal auscultation Murmur: No - Abdominal Inspection: Normal Distension: No distension Bowel sounds: Normal Tenderness: Nontender Organomegaly: No organomegaly - Back Back: Normal, Nontender - Extremities General upper extremity: Normal inspection, Nontender, Normal color, Normal ROM, Normal temperature General lower extremity: Normal inspection, Nontender, Normal color, Normal ROM, Normal temperature, Normal weight bearing. No: Jessy's sign - Neurological Neuro grossly intact: Yes Cognition: Normal Orientation: AAOx4 [place] Coma Scale Eye Opening: Spontaneous [place] Coma Scale Verbal: Oriented [place] Coma Scale Motor: Obeys Commands Kass[place] Coma Scale Total: 15 Speech: Normal Motor strength normal: LUE, RUE, LLE, RLE Sensory: Normal - Psychological Associated symptoms: Normal affect, Normal mood - Skin Skin Temperature: Warm Skin Moisture: Dry Skin Color: Normal Course - Re-evaluation Re-evalutation: 09/14/18 21:44 Based on patient's history of pulmonary embolism CTA of the chest was ordered. CTA was unremarkable. Labs are normal. Normal troponin x2. This is a well- appearing patient in no acute distress. Has access to good outpatient care. At this time I do not know why she has dyspnea but it does appear more subjective at this time. Patient knows that if her symptoms get worse she should return. DC at this time in stable condition. Laboratory 09/14/18 09/14/18 09/14/18 14:33 14:33 14:33 WBC 5.8 RBC 4.15 Hgb 12.8 Hct 36.8 MCV 89 MCH 30.7 MCHC 34.7 RDW 14.9 H Plt Count 246 Seg Neutrophils % 42.3 Lymphocytes % 38.1 Monocytes % 9.5 Eosinophils % 8.9 H Basophils % 1.2 Absolute Neutrophils 2.5 Absolute Lymphocytes 2.2 Absolute Monocytes 0.6 Absolute Eosinophils 0.5 Absolute Basophils 0.1 D-Dimer Sodium Cancelled Potassium Cancelled Chloride Cancelled Carbon Dioxide Cancelled Anion Gap Cancelled BUN Cancelled Creatinine Cancelled Est GFR ( Amer) Cancelled Est GFR (Non-Af Amer) Cancelled Glucose Cancelled Calcium Cancelled Total Bilirubin Cancelled Direct Bilirubin Cancelled Neonat Total Bilirubin Cancelled Neonat Direct Bilirubin Cancelled Neonat Indirect Bili Cancelled AST Cancelled ALT Cancelled Alkaline Phosphatase Cancelled Creatine Kinase Cancelled CK-MB (CK-2) Cancelled Troponin I Cancelled NT-Pro-B Natriuret Pep Cancelled Total Protein Cancelled Albumin Cancelled 09/14/18 09/14/18 09/14/18 14:33 15:22 15:22 WBC RBC Hgb Hct MCV MCH MCHC RDW Plt Count Seg Neutrophils % Lymphocytes % Monocytes % Eosinophils % Basophils % Absolute Neutrophils Absolute Lymphocytes Absolute Monocytes Absolute Eosinophils Absolute Basophils D-Dimer 1.16 H Sodium 141.5 Potassium 3.8 Chloride 103 Carbon Dioxide 26 Anion Gap 13 BUN 29 H Creatinine 1.16 Est GFR ( Amer) 55 L Est GFR (Non-Af Amer) 45 L Glucose 92 Calcium 10.1 Total Bilirubin 0.2 Direct Bilirubin 0.2 Neonat Total Bilirubin Not Reportable Neonat Direct Bilirubin Not Reportable Neonat Indirect Bili Not Reportable AST 23 ALT 36 Alkaline Phosphatase 63 Creatine Kinase 59 CK-MB (CK-2) 0.54 Troponin I < 0.012 NT-Pro-B Natriuret Pep 52 Total Protein 7.1 Albumin 4.5 09/14/18 16:55 WBC RBC Hgb Hct MCV MCH MCHC RDW Plt Count Seg Neutrophils % Lymphocytes % Monocytes % Eosinophils % Basophils % Absolute Neutrophils Absolute Lymphocytes Absolute Monocytes Absolute Eosinophils Absolute Basophils D-Dimer Sodium Potassium Chloride Carbon Dioxide Anion Gap BUN Creatinine Est GFR ( Amer) Est GFR (Non-Af Amer) Glucose Calcium Total Bilirubin Direct Bilirubin Neonat Total Bilirubin Neonat Direct Bilirubin Neonat Indirect Bili AST ALT Alkaline Phosphatase Creatine Kinase CK-MB (CK-2) Troponin I < 0.012 NT-Pro-B Natriuret Pep Total Protein Albumin Chest/Abdomen CTA 09/14/18 16:11 IMPRESSION: No acute findings. No pulmonary emboli. - Vital Signs Vital signs: Temp Pulse Resp BP Pulse Ox 99.0 F 94 18 135/82 H 96 09/14/18 13:23 09/14/18 13:23 09/14/18 18:01 09/14/18 18:01 09/14/18 18:01 - Laboratory Result Diagrams: 09/14/18 14:33 09/14/18 15:22 Laboratory results interpreted by me: 09/14/18 09/14/18 09/14/18 14:33 14:33 15:22 RDW 14.9 H Eosinophils % 8.9 H D-Dimer 1.16 H BUN 29 H Est GFR ( Amer) 55 L Est GFR (Non-Af Amer) 45 L Discharge - Discharge Clinical Impression: Dyspnea Qualifiers: Dyspnea type: dyspnea on exertion Qualified Code(s): R06.09 - Other forms of dyspnea Condition: Good Disposition: HOME, SELF-CARE Instructions: Dyspnea, Nonspecific ([facility]) Additional Instructions: There does not appear to be a blood clot in your lungs. Your cardiac labs look unremarkable. Your EKG looks fairly unremarkable. Uncertain why you are having shortness of breath. I think you should talk to your primary care doctor about this if it persists. Obviously this could get worse. In the event that it does please do not hesitate to return to the ER for repeat evaluation. Continue to take all of your regular medications. Referrals: TORY MARR PA [Primary Care Provider] - Follow up as needed
[2018-09-14 16:00] LABS: ALANINE AMINOTRANSFERASE 36 U/L (9-52); ALBUMIN 4.5 g/dL (3.5-5.0); ALKALINE PHOSPHATASE 63 U/L (38-126); ANION GAP 13 (5-19); ASPARTATE AMINO TRANSFERASE 23 U/L (14-36); BILIRUBIN,DIRECT 0.2 mg/dL (0.0-0.4); BILIRUBIN,TOTAL 0.2 mg/dL (0.2-1.3); BLOOD UREA NITROGEN 29 mg/dL (7-20); CALCIUM 10.1 mg/dL (8.4-10.2); CARBON DIOXIDE 26 mmol/L (22-30); CHLORIDE 103 mmol/L (98-107); CREATINE KINASE 59 U/L (30-135); GLUCOSE 92 mg/dL (75-110); POTASSIUM 3.8 mmol/L (3.6-5.0); SODIUM 141.5 mmol/L (137-145); TOTAL PROTEIN 7.1 g/dL (6.3-8.2)
[2018-09-14 16:13] LABS: CREATINE KINASE MB 0.54 ng/mL (<4.55); NT PRO BNP 52 pg/mL (<450); TROPONIN I < 0.012 ng/mL
--- NOTE | 2018-09-14 16:36 | RADIOLOGY REPORT (SQ) ---
EXAM DESCRIPTION: CTA CHEST COMPLETED DATE/TIME: 09/14/2018 4:24 pm REASON FOR STUDY: cp, sob, hx PE COMPARISON: 09/29/2017 TECHNIQUE: CT scan of the chest performed using helical scanning technique with dynamic intravenous contrast injection. Images reviewed with lung, soft tissue and bone windows. Reconstructed coronal and sagittal MPR images reviewed. Additional 3 dimensional post-processing performed to develop Maximal Intensity Projection images (TN P). All images stored on PACS. All CT scanners at this facility use dose modulation, iterative reconstruction, and/or weight based d osing when appropriate to reduce radiation dose to as low as reasonably achievable (ALARA). [facility]: Dose Right [facility]: CareDose [facility]: Dose Right [facility]: Teradose 4D [facility]: Previstar CONTRAST TYPE AND DOSE: contrast/concentration: Isovue 350.00 mg/ml; Total Contrast Delivered: 72.0 ml; Total Saline Delivered: 80.0 ml Contrast bolus adequate for pulmonary arteries and aorta. RENAL FUNCTION: GFR > 60. RADIATION DOSE: CT Rad equipment meets quality standard of care and radiation dose reduction techniq ues were employed. CTDIvol: 15.5 - 24.8 mGy. DLP: 592 mGy-cm. . LIMITATIONS: None. FINDINGS: LUNGS AND PLEURA: No masses, infiltrates, or pneumothorax. No pleural effusions or pleura l calcifications. AORTA AND GREAT VESSELS: No aneurysm. No dissection. HEART: No pericardial effusion. PULMONARY ARTERIES: No emboli visualized in the main pulmonary arteries or the segmental branches. HILAR AND MEDIASTINAL STRUCTURES: No adenopathy. Large hiatal hernia. HARDWARE: None in the chest. UPPER ABDOMEN: No significant findings. Limited exam. THYROID AND OTHER SOFT TISSUES: No masses. No adenopathy. BONES: Old sternal fracture. No acute findings. 3D MIPS: Confirm above findings. OTHER: No other significant finding. IMPRESSION: No acute findings. No pulmonary emboli. COMMENT: Quality ID # [id number]: Final reports with documentation of one or more dose reduction techniques (e.g., Automated exposure control, adjustment of the mA and/or kV according to patient size, use of iterative reconstruction technique) TECHNICAL DOCUMENTATION: JOB ID: [id number] [employer]- All Rights Reserved Reading location - IP/workstation name: [email or web address]
--- NOTE | 2018-09-14 18:14 | EKG REPORT ---
SEVERITY:- NORMAL ECG - SINUS RHYTHM : Confirmed by: Aleja Tinoco MD 14-Sep-2018 18:13:22
[2018-09-14 18:28] VITALS: BP 135/82
== END 2018-09-14 18:32 | disposition home or self-care (01) ==
LOC: ER 13:19
DX: R06.09 Other forms of dyspnea (principal); R06.02 Shortness of breath; I10 Essential (primary) hypertension; K21.9 Gastro-esophageal reflux disease without esophagitis; Z88.6 Allergy status to analgesic agent; Z96.643 Presence of artificial hip joint, bilateral
CPT/HCPCS: 36415; 71275; 80053; 82550; 82553; 83880; 84484; 85025; 85379; 93005; 93010; 99285